=== PATIENT | female | born 1950 ===

== ENCOUNTER 2019-12-17 04:49 | Emergency (ER) | payer MEDICARE, BC, SELFPAY ==
[2019-12-17 04:52] VITALS: BP 116/73; PULSE 68; RESP 18; TEMP 36.7; O2SAT 95; BMI 37.8
--- NOTE | 2019-12-17 05:01 | CTR_ITS ---
PROCEDURE INFORMATION: Exam: CT Head Without Contrast Exam date and time: 12/17/2019 5:04 AM Age: 69 years old Clinical indication: Injury or trauma; Fall; Initial encounter; Blunt trauma (contusions or hematomas); Without loss of consciousness; Additional info: Trauma/fall TECHNIQUE: Imaging protocol: Computed tomography of the head without contrast. Radiation optimization: All CT scans at this facility use at least one of these dose optimization techniques: automated exposure control; mA and/or kV adjustment per patient size (includes targeted exams where dose is matched to clinical indication); or iterative reconstruction. COMPARISON: No relevant prior studies available. RADIATION DOSE METRICS: Total DLP (mGy-cm): 891.35 FINDINGS: Brain: No acute intracranial hemorrhage or mass effect. There is very mild decreased attenuation in the periventricular white matter, likely from microvascular disease. No definite acute infarct by CT. Ventricles: Ventricle size is normal for age. Bones/joints: No definite acute skull fracture. Sinuses: Included paranasal sinuses are essentially clear. Mastoid air cells: No significant acute finding. Vasculature: Vascular calcifications in the internal carotid and vertebral basilar systems. CT/CT head wo con* [id number] IMPRESSION: 1. No acute intracranial hemorrhage or mass effect. 2. Other findings discussed above. 3. Please see subsequent CT Facial Bone report for evaluation of the facial bones. Radiation Dose CTDIVOL = (mGy): DLP = 891.35 (mGy-cm)
--- NOTE | 2019-12-17 05:34 | XRR_ITS ---
PROCEDURE INFORMATION: Exam: XR Left Knee Exam date and time: 12/17/2019 6:21 AM Age: 69 years old Clinical indication: Injury or trauma; Initial encounter; Blunt trauma; Injury date: 12/17/19; Injury details: Fall; C/O left knee pain and left hip TECHNIQUE: Imaging protocol: XR Left knee. Views: 3 views. COMPARISON: No relevant prior studies available. FINDINGS: Bones/joints: Degenerative change and chondrocalcinosis. No acute bony injury or malalignment. Soft tissues: No radiopaque foreign body. XR/XR knee LT 3V* [id number] IMPRESSION: No acute bony injury or malalignment.
--- NOTE | 2019-12-17 05:34 | CTR_ITS ---
PROCEDURE INFORMATION: Exam: CT Maxillofacial Without Contrast Exam date and time: 12/17/2019 5:59 AM Age: 69 years old Clinical indication: Injury or trauma; Fall; Work related; Initial encounter; Blunt trauma (contusions or hematomas); Cheek bone; Right TECHNIQUE: Imaging protocol: Computed tomography images of the face without contrast. Radiation optimization: All CT scans at this facility use at least one of these dose optimization techniques: automated exposure control; mA and/or kV adjustment per patient size (includes targeted exams where dose is matched to clinical indication); or iterative reconstruction. COMPARISON: No relevant prior studies available. RADIATION DOSE METRICS: Total DLP (mGy-cm): 836.11 FINDINGS: Orbits: Orbital contents appear intact/unremarkable. Bones/joints: No definite evidence of acute facial bone fracture. Sinuses: Included paranasal sinuses appear essentially clear. Soft tissues: Right mid and lower facial soft tissue swelling. CT/CT facial bones wo con* [id number] IMPRESSION: 1. No definite acute facial bone/orbital fracture by CT. 2. Other findings discussed above. Radiation Dose CTDIVOL = (mGy): DLP = 836.11 (mGy-cm)
--- NOTE | 2019-12-17 05:34 | XRR_ITS ---
PROCEDURE INFORMATION: Exam: XR Left Hip with Pelvis when Performed Exam date and time: 12/17/2019 6:24 AM Age: 69 years old Clinical indication: Injury or trauma; Initial encounter; Blunt trauma (contusions or hematomas); Injury date: ; Injury details: Pain and swelling left hip after fall; Prior surgery; Surgery date: 6+ months; Surgery type: Lt hip replacement TECHNIQUE: Imaging protocol: XR Left hip with pelvis when performed. Views: 2 or 3 views. COMPARISON: CR Hip 2-3v LEFT wwo Pelv* [id number] 10/16/2018 3:01 PM FINDINGS: Bones/joints: No acute bony injury or malalignment in the visualized left hip. If an occult fracture is of clinical concern, CT correlation can be performed. Left hip hemiarthroplasty. Soft tissues: Skin folds. XR/XR hip LT 2-3V wo/w pel* [id number] IMPRESSION: No acute bony injury or malalignment in the visualized left hip.
[2019-12-17 06:18] VITALS: BP 152/99; PULSE 89; RESP 16; O2SAT 93
--- NOTE | 2019-12-17 07:26 | CT_ITS ---
WS: [id number] CT LEFT HIP HISTORY: hematoma Technique: All CT scans at [facility] use at least one of these dose optimization techniq ues: automated exposure control; mA and/or kV adjustment per patient size (includes targeted exams wh ere dose is matched to clinical indication); or iterative reconstruction. DLP: 2703.07 mGy.cm COMPARISON: 12/17/2019 radiographs Patient is status post LEFT hip arthroplasty. No acute fracture is identified. Prostheses remain in g ood position. There is a very large subcutaneous hematoma lateral to the RIGHT hip measuring 14 cm in length by 6.1 cm x 13.5 cm. There is a large amount of subcutaneous soft tissue stranding. The central portion of this hematoma is slightly liquefied. CT/CT hip LT wo con* [id number] IMPRESSION: 1. No acute LEFT hip fracture identified. 2. Status post LEFT hip arthroplasty. 3. Large subcutaneous hematoma has partially liquefied. Hematoma measures 14.0 x 6.1 x 13.5 cm. The central liquefaction may represent acute progressive blee ding versus liquefaction from remote injury.
[2019-12-17 07:46] LABS: Basophils # 0.1 10^3/uL (0.0-0.1); Basophils % 0.5 %; Eosinophils % 0.3 %; Hematocrit 41.1 % (37.0-47.0); Hemoglobin 13.2 g/dL (11.5-15.3); Lymphocytes % 15.1 %; Mean Corpuscular HGB Conc 32.1 g/dL (30.0-36.0); Mean Corpuscular Hemoglobin 31.7 pg (28.0-34.0); Mean Corpuscular Volume 98.8 fL (81-99); Mean Platelet Volume 10.4 fL (7.4-10.4); Monocytes # 0.7 10^3/uL (0.2-0.9); Monocytes % 5.3 %; Neutrophils # 10.16 10^3/uL (1.8-7.7); Neutrophils % 78.6 %; Nucleated Red Blood Cells % 0 %; Platelet Count 235 10^3/cmm (130-400); Red Blood Count 4.16 10^6/uL (4.1-5.3); Red Cell Distribution Width 12.3 % (12.1-15.1); White Blood Count 12.9 10^3/uL (4.0-10.0)
[2019-12-17 07:58] LABS: Partial Thromboplastin Time 46.2 SECONDS (23.9-36.7)
[2019-12-17 08:03] LABS: Alanine Aminotransferase 13 U/L (0-33); Albumin Level 4.1 g/dL (3.5-5.2); Alkaline Phosphatase 64 IU/L (35-105); Anion Gap 14.3 (5-19); Aspartate Amino Transferase 28 U/L (0-32); Blood Urea Nitrogen 16 mg/dL (8-23); Calcium 9.2 mg/dL (8.5-10.5); Carbon Dioxide 29 mmol/L (22-29); Chloride 99 mmol/L (98-107); Globulin 3.4 g/dL (1.3-4.6); Glucose 131 mg/dL (65-115); Osmolality Calculated 284 mOsm/kg (285-295); Potassium 4.3 mmol/L (3.5-5.1); Sodium 138 mmol/L (136-145); Total Bilirubin 0.4 mg/dL (0.15-1.2); Total Protein 7.5 g/dL (6.6-8.7)
[2019-12-17 08:25] VITALS: BP 163/124; PULSE 74; RESP 20; O2SAT 94
--- NOTE | 2019-12-17 08:41 | ED_ITS ---
HPI - Extremity Problem General: Chief complaint: Extremity Injury, Lower Stated complaint: FALL Time Seen by Provider: 12/17/19 05:32 History of Present Illness: HPI Narrative: Patient was walking outside to get her cat and caught her slipper on the edge of a wooden pallet. Patient fell and struck the left side of her face on a pole. She states the pole caused her body to twist and she landed on her left leg. Patient has an extremely large hematoma over her left hip. MD Complaint: extremity pain and extremity swelling Onset (ago): minute(s) Pain Consistency: constant Location: left and lower extremity (hip) Review of Systems General: Reports: 10 or more systems reviewed and unremarkable except in HPI and below PFSH ED PFSH: Medical History Atrial fibrillation Physical Exam Const: COMMON NORMALS: no acute distress, healthy appearing and well nourished GENERAL APPEARANCE: cooperative and well developed HENMT: COMMON NORMALS: hearing grossly normal bilaterally HEAD & SCALP: normal to inspection Eye: GENERAL EYE: appearance normal, both eyes and all related structures Neck/C-Spine: COMMON NORMALS: full ROM, no lymphadenopathy and no meningeal signs GENERAL: Yes normal visual inspection CERVICAL SPINE: Yes cervical ROM normal and Yes normal cervical lordosis Chest: COMMONS NORMALS: normal inspection of the chest and normal palpation of entire chest wall Resp: COMMON NORMALS: normal respiratory effort, clear to auscultation bilaterally and percussion normal AUSCULTATION: clear to auscultation bilaterally PERCUSSION: percussion normal Cardio: COMMON NORMALS: regular rate, regular rhythm, S1 normal heart sound present and S2 normal heart sound present JUGULAR VENOUS DISTENTION: no JVD PALPATION: normal PMI RATE: regular rate RHYTHM: regular rhythm HEART SOUNDS: S1 normal heart sound present and S2 normal heart sound present GI: COMMON NORMALS: Soft to palpation and No hepatosplenomegaly present INSPECTION: Yes normal to inspection PALPATION: Yes Soft to palpation and Yes No hepatosplenomegaly present PERCUSSION: normal to percussion : COMMON NORMALS: Yes no CVA tenderness BLADDER/KIDNEY EXAM: Yes no CVA tenderness Back/Pelvis: COMMON NORMALS: no CVA tenderness, thoracic and lumbar spine normal to inspection and thoraco-lumbar ROM normal Extremity: COMMON NORMALS: full ROM and capillary refill normal NARRATIVE EXTREMITY EXAM: Patient has a hematoma over her left hip that is approximately 30 cm in diameter Neuro: MENINGEAL SIGNS: Yes no meningeal signs Skin: COMMON NORMALS: no rashes or lesions noted, no wounds and turgor normal GENERAL SKIN EXAM: no rashes or lesions noted, elasticity normal and turgor normal LESIONS: no lesions RASHES: no rashes TRAUMA: no lacerations or abrasions HAIR: normal NAILS: normal Course ED course: CAT scan patient's head and face are normal. Plain x-ray of the left hip shows no evidence of acute injury. CT of the hip reveals no fracture but a very large hematoma. Patient's INR is only 2.3 so the patient was given vitamin K 5 mg by mouth. An Maikol wrap was wrapped around the patient's upper leg and hip for compression. Patient is instructed to come back to the ER in 8 hours for reevaluation. Vital Signs: Vital signs: Vital Signs Temperature 98.1 F 12/17/19 04:52 Pulse Rate 74 12/17/19 08:25 Respiratory Rate 20 H 12/17/19 08:25 Blood Pressure 163/124 12/17/19 08:25 Pulse Oximetry 94 12/17/19 08:25 MDM - Extremity (Nontraumatic) Lab Data: Labs: Lab Results 12/17/19 12/17/19 12/17/19 Range/Units 07:39 07:39 07:39 WBC 12.9 H (4.0-10.0) 10^3/ uL RBC 4.16 (4.1-5.3) 10^6/u L Hgb 13.2 (11.5-15.3) g/dL Hct 41.1 (37.0-47.0) % MCV 98.8 (81-99) fL MCH 31.7 (28.0-34.0) pg MCHC 32.1 (30.0-36.0) g/dL RDW 12.3 (12.1-15.1) % Plt Count 235 (130-400) 10^3/c mm MPV 10.4 (7.4-10.4) fL Neut % (Auto) 78.6 % Lymph % (Auto) 15.1 % [place] % (Auto) 5.3 % Eos % (Auto) 0.3 % Baso % (Auto) 0.5 % Neut # (Auto) 10.16 H (1.8-7.7) 10^3/u L Lymph # (Auto) 2.0 (0.8-4.8) 10^3/u L [place]enton # (Auto) 0.7 (0.2-0.9) 10^3/u L Eos # (Auto) 0.0 (0.0-0.8) 10^3/u L Baso # (Auto) 0.1 (0.0-0.1) 10^3/u L Nucleated RBC % (a uto) 0 % Nucleated RBCs # 0.0 /100WBC PT 26.10 H (10.5-13.3) SECO NDS INR 2.30 H (0.8-1.2) APTT 46.2 H (23.9-36.7) SECO NDS Sodium 138 (136-145) mmol/L Potassium 4.3 (3.5-5.1) mmol/L Chloride 99 (98-107) mmol/L Carbon Dioxide 29 (22-29) mmol/L Anion Gap 14.3 (5-19) BUN 16 (8-23) mg/dL Creatinine 0.6 (0.5-0.9) mg/dL Glucose 131 H (65-115) mg/dL Calculated Osmolal ity 284 L (285-295) mOsm/k g Calcium 9.2 (8.5-10.5) mg/dL Total Bilirubin 0.4 (0.15-1.2) mg/dL AST 28 (0-32) U/L ALT 13 (0-33) U/L Alkaline Phosphata se 64 (35-105) IU/L Total Protein 7.5 (6.6-8.7) g/dL Albumin 4.1 (3.5-5.2) g/dL Globulin 3.4 (1.3-4.6) g/dL Discharge Plan Discharge Patient Disposition: Home, Self-Care Clinical Impression: Hematoma and contusion, Anticoagulated on Coumadin Fall Qualifiers: Encounter type: initial encounter Qualified Code(s): W19.XXXA - Unspecified fall, initial encounter Condition: Stable Prescriptions: No Action warfarin [Coumadin] 6 mg tablet 6 mg PO DAILY Qty: 90 RF: 3 warfarin [Coumadin] 1 mg tablet 1 mg PO DAILY Qty: 30 RF: 11 warfarin 5 mg tablet 5 mg PO DAILY Qty: 30 RF: 5 Discharge Orders: Discharge Order (Routine); Ordered 12/17/19 Ordered By: Yonis Mayes Referrals: Carmina Soto MD [Primary Care Provider] - Coding Level of Care Code ED [place] Operator for g 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
[2019-12-17] MEDS: phytonadione (ADULT) 10 mg/mL Ampule 1 mL 5 MG PO (08:58)
--- NOTE | 2019-12-17 09:13 | PC.NURSE ---
meghana wrap was wrapped around hematoma and measured for any increased in size was told that any increase in size patient should come back in at 1700
[2019-12-17 09:17] VITALS: BP 135/93; PULSE 100; RESP 20; O2SAT 94
== END 2019-12-17 09:19 | disposition home or self-care (01) ==
PROVIDERS: Emergency Provider Family Medicine; PCP Internal Medicine
DX: S70.02XA Contusion of left hip, initial encounter (principal); Z79.01 Long term (current) use of anticoagulants; I48.91 Unspecified atrial fibrillation; W01.198A Fall on same level from slipping, tripping and stumbling with subsequent striking against other object, initial encounter
CPT/HCPCS: 12345; 36415; 70450; 70486; 73502; 73562; 73700; 80053; 85025; 85610; 85730; 99281; 99283; J3430

== ENCOUNTER 2020-01-18 10:13 | Outpatient (CLI) | payer MEDICARE, BC, SELFPAY ==
--- NOTE | 2020-01-18 11:15 | CT_ITS ---
WS: [id number] CT LEFT HIP, NONCONTRAST HISTORY: left hip hematoma, post fall, on anticoagulation Technique: All CT scans at [facility] use at least one of these dose optimization techniq ues: automated exposure control; mA and/or kV adjustment per patient size (includes targeted exams wh ere dose is matched to clinical indication); or iterative reconstruction. DLP: 804.16 mGycm COMPARISON: 12/17/2019 Continued soft tissue hematoma centered lateral to the LEFT hip. There is a subcutaneous soft tissue mass extending over length of 13.8 cm and transversely by 7.8 cm. Very slight decrease in size of thi s hematoma since 12/17/2019. There is less adjacent subcutaneous edema. Significant artifact from the patient's LEFT hip arthroplasty. No acute fractures are identified. CT/CT hip LT wo con* [id number] IMPRESSION: Persistent large subcutaneous hematoma centered lateral to the LEFT hip. Minima l decrease in size since 12/17/2019.
== END 2020-01-18 10:14 | disposition home or self-care (01) ==
LOC: RADWPI 10:18
PROVIDERS: PCP Internal Medicine; Visit Provider Nurse Practitioner Family
DX: S70.02XA Contusion of left hip, initial encounter (principal); W19.XXXA Unspecified fall, initial encounter
CPT/HCPCS: 73700

== ENCOUNTER 2020-06-07 18:28 | Inpatient (IN) | payer MEDICARE, BC, SELFPAY ==
[2020-06-07 18:34] VITALS: BP 152/75; PULSE 66; RESP 20; TEMP 36.7; O2SAT 94; BMI 37.8
--- NOTE | 2020-06-07 18:48 | XRR_ITS ---
PROCEDURE INFORMATION: Exam: XR Chest, 1 View Exam date and time: 06/07/2020 7:51 PM Age: 70 years old Clinical indication: Shortness of breath; Additional info: SOB TECHNIQUE: Imaging protocol: XR of the chest Views: 1 view. COMPARISON: No relevant prior studies available. FINDINGS: Lungs: There are reticulonodular interstitial infiltrates bilaterally. This could be due to interstitial fibrosis but an interstitial pneumonitis cannot be excluded without comparison old films. Pleural space: Unremarkable. No pleural effusion. No pneumothorax. Heart/Mediastinum: The cardiac silhouette is enlarged. Bones/joints: Unremarkable. XR/XR chest 1V portable [id number] IMPRESSION: 1. Cardiomegaly. 2. Reticulonodular interstitial pulmonary infiltrates which may be chronic fibrosis but without old films an acute interstitial pneumonitis cannot be excluded.
--- NOTE | 2020-06-07 18:53 | PC.NURSE ---
pt placed on 3l nc
--- NOTE | 2020-06-07 18:59 | PC.NURSE ---
pt has no hx of copd, does not wear home o2, ra sats anywhere from 87-94
--- NOTE | 2020-06-07 20:48 | ECG_ITS ---
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 Measurements Intervals [place] Rate: 47 P: WI: QRS: -11 QRSD: 123 T: -36 QT: 463 QTc: 411 Interpretive Statements ATRIAL FIBRILLATION WITH SLOW VENTRICULAR RESPONSE ANTEROSEPTAL MYOCARDIAL INFARCTION , OF INDETERMINATE AGE [40+ ms Q WAVE IN V1-V4] No previous ECG available for comparison Electronically Signed On 06-08-2020 0:12:07 FARM MANAGEMENT ADVISER by Chelo Correa M.D. [id number]
[2020-06-07 21:18] VITALS: BP 139/68; PULSE 50; RESP 16; O2SAT 97
[2020-06-07 21:48] LABS: Basophils # 0.1 10^3/uL (0.0-0.1); Basophils % 0.8 %; Eosinophils # 0.1 10^3/uL (0.0-0.8); Eosinophils % 2.1 %; Hematocrit 45.8 % (37.0-47.0); Hemoglobin 14.2 g/dL (11.5-15.3); Lymphocytes # 1.6 10^3/uL (0.8-4.8); Lymphocytes % 26.2 %; Mean Corpuscular Volume 103.2 fL (81-99); Mean Platelet Volume 10.4 fL (7.4-10.4); Monocytes # 0.6 10^3/uL (0.2-0.9); Monocytes % 9.2 %; Neutrophils # 3.73 10^3/uL (1.8-7.7); Neutrophils % 61.4 %; Nucleated Red Blood Cells % 0 %; Platelet Count 172 10^3/cmm (130-400); Red Blood Count 4.44 10^6/uL (4.1-5.3); Red Cell Distribution Width 14.5 % (12.1-15.1); White Blood Count 6.1 10^3/uL (4.0-10.0)
--- NOTE | 2020-06-07 21:49 | W.ED.SOB ---
HPI - SOB/Dyspnea General: Chief Complaint: Shortness of Breath/Dyspnea Stated Complaint: WEAKNESS, SOB Time Seen by Provider: 06/07/20 21:06 History of Present Illness: HPI Narrative: The patient is a 70-year-old female who was treated for pneumonia 2 weeks ago. She comes to the ER stating that it feels like an elephant is sitting on her chest and her belly feels very swollen. She says it hurts with deep breaths and coughing and she is short of breath especially when she lays down. She says they gave her antibiotics for the pneumonia couple weeks ago but she feels no better and the pressure is still there. She says she may have had a myocardial infarction somewhere in her 30s but nothing since. Story of A. fib, CHF, DVTs and admits some swelling to her lower extremities and in the past few days her belly has began to swell. MD elicited complaint: shortness of breath, cough and chest pain (Chest pressure) Pertinent past history: congestive heart failure Context: recent illness Severity: moderate Exacerbating factors: coughing and inspiration Relieving factors: nothing Known history of: congestive heart failure Associated symptoms: Reports abdominal pain (With coughing) and chest pain (Chest pressure); Deny dizziness, extremity pain or polyuria Treatment prior to arrival: none Review of Systems General: Reports: 10 or more systems reviewed and unremarkable except in HPI and below Const: Denies: fatigue Eyes: Denies: change in vision, blurry vision or eye redness ENMT: Denies: throat pain, swelling of lips/tongue, ear or mastoid pain or nasal congestion Card: Reports: chest pain (Chest pressure) Resp: Denies: dyspnea, productive cough or non-productive cough GI: Reports: abdominal pain (With coughing) : Denies: flank pain, difficulty voiding, urinary frequency or urinary urgency Musc: Denies: neck pain, back pain, extremity pain, joint pain, joint redness, limited range of motion or muscle weakness Skin/Breast: Denies: rash, pruritus, erythema, skin pain or skin tenderness Neuro: Denies: headache(s), numbness in extremities, weakness in extremities, sensory changes, difficulty walking, dizziness, confusion or Slurred speech present Psych: Denies: anxiety or depression Endo: Denies: polyuria All/Imm: Denies: urticaria, throat swelling or tongue swelling PFSH ED PFSH: Medical History (Updated 06/08/20 @ 00:09 by Dionicio Chand MD) Atrial fibrillation CHF (congestive heart failure) Hx of deep venous thrombosis Surgical History Hx of hysterectomy Hx of tonsillectomy Family History Father CAD (coronary artery disease) Mother Cancer Grandmother Cancer Denies family history of Diabetes Clotting disorder Dementia Hyperlipidemia Psychiatric illness Chronic kidney disease (CKD) Suicide Anesthesia complication Bleeding disorder Family history of premature coronary artery disease Lung disease Hypertension Stroke Social History Smoking and tobacco status: former smoker Alcohol intake: never Physical Exam Const: COMMON NORMALS: no acute distress, average body habitus, patient oriented x3, no limitations, healthy appearing, alert and well nourished GENERAL APPEARANCE: cooperative, comfortable, well kempt and well developed ORIENTATION/CONSCIOUSNESS: Yes awake, Yes oriented to person, Yes oriented to place and Yes oriented to time HENMT: COMMON NORMALS: normocephalic, external ears normal and Normal external nose present HEAD & SCALP: normal to inspection and normocephalic NOSE: Normal external nose present EXTERNAL EAR: Yes external ears normal MOUTH: Normal oral and palatal mucosa present THROAT: posterior oropharynx normal Eye: COMMON NORMALS: Equal, round and reactive pupils present and EOMs intact bilaterally GENERAL EYE: appearance normal, both eyes and all related structures PUPIL: Yes Equal, round and reactive pupils present Neck/C-Spine: COMMON NORMALS: full ROM, no lymphadenopathy, no meningeal signs and no JVD GENERAL: Yes normal visual inspection Lymph: LYMPHATIC: no lymphadenopathy noted Chest: COMMONS NORMALS: normal inspection of the chest OTHER: Anterior tenderness to the chest wall reproducing her chief complaint of chest pressure Resp: COMMON NORMALS: normal respiratory effort, No retractions, No use of accessory muscles, clear to auscultation bilaterally and percussion normal EFFORT & INSPECTION: Yes able to speak in complete sentences AUSCULTATION: clear to auscultation bilaterally PERCUSSION: percussion normal Cardio: COMMON NORMALS: no JVD, regular rate, regular rhythm, S1 normal heart sound present, S2 normal heart sound present and Peripheral pulses 2+ throughout RATE: regular rate RHYTHM: regular rhythm HEART SOUNDS: S1 normal heart sound present and S2 normal heart sound present PERIPHERAL PULSES: Peripheral pulses 2+ throughout GI: COMMON NORMALS: Normal to inspection, nondistended, normoactive bowel sounds present, Soft to palpation, non-tender and no masses INSPECTION: Yes normal to inspection PALPATION: Yes Soft to palpation : COMMON NORMALS: Yes no CVA tenderness BLADDER/KIDNEY EXAM: Yes no CVA tenderness Back/Pelvis: COMMON NORMALS: no CVA tenderness, thoracic and lumbar spine normal to inspection, no thoracic nor lumbar tenderness and thoraco-lumbar ROM normal Extremity: COMMON NORMALS: normal to inspection, full ROM, capillary refill normal, no joint enlargement and no pedal edema GENERAL: Yes normal exam except as noted OTHER: 1-2+ edema to the lower extremities to her knees. Neuro: COMMON NORMALS: patient oriented x3, CN's II-XII intact bilaterally, moves all extremities, no focal motor deficits, no sensory deficits noted and gait normal SENSORIUM/ORIENTATION: Yes alert, Yes oriented to person, Yes oriented to place and Yes oriented to time MENINGEAL SIGNS: Yes no meningeal signs Psych: COMMON NORMALS: mental status grossly normal, Normal thought process present, cooperative, normal affect and speech normal APPEARANCE: Yes well kempt ATTITUDE: Yes calm SPEECH: Yes normal speech THOUGHT PROCESS: Normal thought process present Skin: COMMON NORMALS: no rashes or lesions noted GENERAL SKIN EXAM: no rashes or lesions noted Course Vital Signs: Vital signs: Vital Signs Temperature 98.0 F 06/07/20 18:34 Pulse Rate 50 L 06/07/20 21:18 Respiratory Rate 17 06/07/20 23:30 Blood Pressure 139/68 06/07/20 21:18 Pulse Oximetry 97 06/07/20 21:18 MDM - SOB/Dyspnea MDM Narrative: Medical decision making narrative: The patient came in complaining of chest pressure and swelling in her belly. She has been treated recently for pneumonia with antibiotics 2 weeks ago. Chest x-ray is clear. And her chest is tender. Unlikely true angina. First troponin is negative and her EKG shows sinus bradycardia with atrial fibrillation. She chronically has this and takes warfarin though is slightly subtherapeutic. Her proBNP is 1713. She has no baseline here. This does easily explain her swelling and abdominal distention. She says she does not take her Lasix at home because she is in a power chair and refuses to urinate on her clothes or floor all day every day. I ordered Lasix for the ER and she refused that as well. She also refused her aspirin for the chest pain protocol. I described the need for both of these medications and she again refused. She says she will take the Lasix only if she is admitted as an inpatient. I discussed with the hospitalist who says she is in observation patient and I agree. I gave her the choice of being kept as an observation or being discharged AGAINST MEDICAL ADVICE. She chose observation and will speak with social work tomorrow about insurance. Dr. Flores accepts obs. Lab Data: Labs: Lab Results 06/07/20 06/07/20 06/07/20 Range/Units 21:26 21:26 21:26 WBC 6.1 (4.0-10.0) 10^3/ uL RBC 4.44 (4.1-5.3) 10^6/u L Hgb 14.2 (11.5-15.3) g/dL Hct 45.8 (37.0-47.0) % MCV 103.2 H (81-99) fL MCH 32.0 (28.0-34.0) pg MCHC 31.0 (30.0-36.0) g/dL RDW 14.5 (12.1-15.1) % Plt Count 172 (130-400) 10^3/c mm MPV 10.4 (7.4-10.4) fL Neut % (Auto) 61.4 % Lymph % (Auto) 26.2 % [place] % (Auto) 9.2 % Eos % (Auto) 2.1 % Baso % (Auto) 0.8 % Neut # (Auto) 3.73 (1.8-7.7) 10^3/u L Lymph # (Auto) 1.6 (0.8-4.8) 10^3/u L [place] # (Auto) 0.6 (0.2-0.9) 10^3/u L Eos # (Auto) 0.1 (0.0-0.8) 10^3/u L Baso # (Auto) 0.1 (0.0-0.1) 10^3/u L Nucleated RBC % (a uto) 0 % Nucleated RBCs # 0.0 /100WBC PT (12.1-14.9) SECO NDS INR (0.8-1.2) D-Dimer (0-0.59) ug/mIFE U Sodium 142 (136-145) mmol/L Potassium 4.0 (3.5-5.1) mmol/L Chloride 97 L (98-107) mmol/L Carbon Dioxide 39 H (22-29) mmol/L Anion Gap 10.0 (5-19) BUN 20 (8-23) mg/dL Creatinine 0.7 (0.5-0.9) mg/dL GFR Calculation Not Reportable Glucose 97 (65-115) mg/dL Calculated Osmolal ity 297 H (285-295) mOsm/k g Calcium 9.2 (8.5-10.5) mg/dL Total Bilirubin 0.7 (0.15-1.2) mg/dL AST 19 (0-32) U/L ALT 9 (0-33) U/L Alkaline Phosphata se 60 (35-105) IU/L Troponin T Baselin e 17 H (0-10) ng/L NT-Pro-B Natriuret Pep 1713 H (0-125) pg/mL Total Protein 6.5 L (6.6-8.7) g/dL Albumin 4.0 (3.5-5.2) g/dL Globulin 2.5 (1.3-4.6) g/dL 06/07/20 06/07/20 Range/Units 21:26 21:26 WBC (4.0-10.0) 10^3/ uL RBC (4.1-5.3) 10^6/u L Hgb (11.5-15.3) g/dL Hct (37.0-47.0) % MCV (81-99) fL MCH (28.0-34.0) pg MCHC (30.0-36.0) g/dL RDW (12.1-15.1) % Plt Count (130-400) 10^3/c mm MPV (7.4-10.4) fL Neut % (Auto) % Lymph % (Auto) % [place] % (Auto) % Eos % (Auto) % Baso % (Auto) % Neut # (Auto) (1.8-7.7) 10^3/u L Lymph # (Auto) (0.8-4.8) 10^3/u L [place] # (Auto) (0.2-0.9) 10^3/u L Eos # (Auto) (0.0-0.8) 10^3/u L Baso # (Auto) (0.0-0.1) 10^3/u L Nucleated RBC % (a uto) % Nucleated RBCs # /100WBC PT 20.80 H (12.1-14.9) SECO NDS INR 1.72 H (0.8-1.2) D-Dimer 1.30 H (0-0.59) ug/mIFE U Sodium (136-145) mmol/L Potassium (3.5-5.1) mmol/L Chloride (98-107) mmol/L Carbon Dioxide (22-29) mmol/L Anion Gap (5-19) BUN (8-23) mg/dL Creatinine (0.5-0.9) mg/dL GFR Calculation Glucose (65-115) mg/dL Calculated Osmolal ity (285-295) mOsm/k g Calcium (8.5-10.5) mg/dL Total Bilirubin (0.15-1.2) mg/dL AST (0-32) U/L ALT (0-33) U/L Alkaline Phosphata se (35-105) IU/L Troponin T Baselin e (0-10) ng/L NT-Pro-B Natriuret Pep (0-125) pg/mL Total Protein (6.6-8.7) g/dL Albumin (3.5-5.2) g/dL Globulin (1.3-4.6) g/dL Discharge Plan Discharge Patient Disposition: Placed in Observation Clinical Impression: Congestive heart failure Qualifiers: Heart failure type: unspecified Heart failure chronicity: chronic Qualified Code(s): I50.9 - Heart failure, unspecified Chest pain Qualifiers: Chest pain type: unspecified Qualified Code(s): R07.9 - Chest pain, unspecified Coding Level of Care Code ED [employer] 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
[2020-06-07 22:02] LABS: INR 1.72 (0.8-1.2)
[2020-06-07 22:14] LABS: Troponin(5th) Baseline 17 ng/L (0-10)
[2020-06-07 22:17] LABS: Alanine Aminotransferase 9 U/L (0-33); Alkaline Phosphatase 60 IU/L (35-105); Aspartate Amino Transferase 19 U/L (0-32); Blood Urea Nitrogen 20 mg/dL (8-23); Calcium 9.2 mg/dL (8.5-10.5); Carbon Dioxide 39 mmol/L (22-29); Chloride 97 mmol/L (98-107); Creatinine Clr Calc Pharmacy 72.9886; Globulin 2.5 g/dL (1.3-4.6); Glucose 97 mg/dL (65-115); NT Pro B Type Natriuretic Pept 1713 pg/mL (0-125); Osmolality Calculated 297 mOsm/kg (285-295); Sodium 142 mmol/L (136-145); Total Bilirubin 0.7 mg/dL (0.15-1.2); Total Protein 6.5 g/dL (6.6-8.7)
[2020-06-07] MEDS: nitroglycerin 0.4 mg sublingual Tablet SUBLINGUAL (22:52)
[2020-06-07 23:30] VITALS: RESP 17
--- NOTE | 2020-06-07 23:31 | PC.NURSE ---
second troponin drawn and taken to lab by this nurse
[2020-06-07 23:57] LABS: Troponin 5 2HR 16.68 ng/L (0-10)
[2020-06-08] VITALS (11 sets, daily range): BP systolic 103–138; BP diastolic 69–72; PULSE 48–83; RESP 16–22; TEMP 36.6; O2SAT 92–97
[2020-06-08 00:04] LABS: Troponin 5 2HR Delta -0.32 ABS# (0-10)
--- NOTE | 2020-06-08 00:24 | PM.HP ---
Providers/Chief Complaint Primary Care Provider: Carmina Soto MD Chief Complaint: WEAKNESS, SOB History of Present Illness Prachi Gooden is a 70 year old female she of preserved ejection fraction heart failure EF 56% presented today with chief complaint of thoughts PND and shortness of breath. patient is stating that at home she uses electric wheelchair and is very hard for her to go to the bathroom when she is using Lasix so she decided to not take Lasix at all, she is also eating frozen food, not able to cook for herself, relies on neighbors food sometimes, for her snacks she is eating crackers with peanut butter does not watch her sodium or fluid intake. She has quit smoking does not drink alcohol. Her morbid obesity and other chronic conditions are making her ambulation very difficult for her which is affecting her quality of life. She is not endorsing fever, chest pain, diarrhea nausea or vomiting however endorsing abdominal bloating, gaining weight and feeling discomfort around her abdominal area. Diagnosis in the ER revealed CHF exacerbation with clinical signs of fluid overload, patient refused IV Lasix in the ER stating she does not want to urinate in her friend's car, however agreed to stay overnight for initiation of Bumex, monitor urine output and use bedside commode. Review of Systems Const: Denies: fever(s) Eyes: Denies: change in vision ENMT: Denies: throat pain Card: Reports: edema, swelling of feet/ankles, dyspnea on exertion and orthopnea; Denies: chest pain Resp: Reports: dyspnea GI: Reports: early satiety, bloating and GI cramping; Denies: abdominal pain : Denies: flank pain Musc: Denies: neck pain Skin/Breast: Denies: rash Neuro: Denies: headache(s) Psych: Reports: anxiety Endo: Denies: polyuria Herb/Lymph: Denies: easy bruising All/Imm: Denies: urticaria Medications/Allergies Home Medications Medication Instructions Recorded Confirmed Last Taken Type warfarin 6 mg tablet 6 mg PO DAILY #90 tab 11/16/19 05/31/20 Unknown Rx warfarin 1 mg tablet 1 mg PO DAILY #30 tab 11/18/19 05/31/20 Unknown Rx warfarin 5 mg tablet 5 mg PO DAILY #30 tab 12/08/19 05/31/20 Unknown Rx acyclovir 400 mg tablet 400 mg PO BID 12/22/19 01/21/20 Unknown History albuterol sulfate 0.63 mg/3 mL 0.63 mg INHALATION Q6H 12/22/19 01/21/20 Unknown History solution for nebulization albuterol sulfate 90 mcg/actuation 1 inh INHALATION QID 12/22/19 01/21/20 Unknown History aerosol inhaler atenolol 25 mg tablet 25 mg PO DAILY 12/22/19 01/21/20 Unknown History colesevelam 625 mg tablet 1,250 mg PO BID 12/22/19 01/21/20 Unknown History diazepam 10 mg tablet 10 mg PO TID PRN 12/22/19 01/21/20 Unknown History fentanyl 75 mcg/hr transdermal 1 patch TRANSDERMA Q72H 12/22/19 01/21/20 Unknown History patch furosemide 40 mg tablet 40 mg PO DAILY 12/22/19 01/21/20 Unknown History gabapentin 300 mg capsule 300 mg PO TID 12/22/19 01/21/20 Unknown History levothyroxine 100 mcg tablet 100 mcg PO DAILY 12/22/19 01/21/20 Unknown History montelukast 10 mg tablet 10 mg PO DAILY 12/22/19 01/21/20 Unknown History nitroglycerin 0.4 mg sublingual 0.4 mg SUBLINGUAL Q5M PRN 12/22/19 01/21/20 Unknown History tablet potassium chloride 20 mEq 20 meq PO DAILY 12/22/19 01/21/20 Unknown History tablet,extended release digoxin 250 mcg (0.25 mg) tablet 250 mcg PO DAILY #90 tab 02/22/20 Unknown Rx nifedipine 90 mg tablet,extended 90 mg PO DAILY #30 tab 05/04/20 Unknown Rx release simvastatin 40 mg tablet See Rx Instructions .ROUTE 05/16/20 Unknown Rx .COMPLEX #90 tablet Allergies Allergy/AdvReac Type Severity Reaction Status Date / Time adhesive tape Allergy Unknown Unverified 06/16/19 14:09 duloxetine [From Cymbalta] Allergy Unknown Unverified 06/16/19 14:09 Iodinated Contrast Media Allergy Unknown Unverified 06/16/19 14:09 theophylline Allergy Unknown Unverified 06/16/19 14:09 [facility] [place] Wort Allergy Unknown Uncoded 06/16/19 14:09 PFSH Acute PFSH: Medical History Atrial fibrillation CHF (congestive heart failure) Chronic anticoagulation For A. fib and DVT COPD (chronic obstructive pulmonary disease) Hx of deep venous thrombosis Hypothyroid Sleep apnea Surgical History History of hip replacement Bilateral hip arthroplasty Hx of hysterectomy Hx of tonsillectomy S/P cholecystectomy Family History Father CAD (coronary artery disease) Mother Cancer Grandmother Cancer Denies family history of Diabetes Clotting disorder Dementia Hyperlipidemia Psychiatric illness Chronic kidney disease (CKD) Suicide Anesthesia complication Bleeding disorder Family history of premature coronary artery disease Lung disease Hypertension Stroke Social History Smoking and tobacco status: former smoker Alcohol intake: never Vitals/I&O/Wt Last Vital Signs Temp 98.0 F 06/07/20 18:34 Pulse 50 L 06/07/20 21:18 Resp 17 06/07/20 23:30 BP 139/68 06/07/20 21:18 Pulse Ox 97 06/07/20 21:18 Weight last 48 hrs Weight 99.79 kg Physical Exam Narrative: EXAM NARRATIVE: Very pleasant elderly female Awake alert oriented x3 GCS 15 EOMI, PERRLA Currently saturating well on room air No active chest pain or shortness of breath Clinical signs of fluid overload S1, S2 variable with active signs of heart failure 2+ pitting edema lower extremity Adequate bilateral air flow however crackles noted at the bases bilaterally Abdomen soft, distended, bloated bowel sound present nontender No skin rash gangrene or ulcer Appropriate mood and affect Morbid obesity All distal extremities are warm to touch no active joint swelling however endorsing joint pain with range of motion especially at hip joint, uses wheelchair Data : 06/07/20 21:26 06/07/20 21:26 A&P Assessment and plan (1) Acute exacerbation of CHF (congestive heart failure): Acute CHF exacerbation Patient does not use Lasix at all at home Dietary indiscretion, she is eating frozen food and eats a lot of crackers with peanut butter Endorsing orthopnea PND shortness of breath, no active chest pain, negative delta troponin, EKG is not showing any ischemic or infarctive changes, I would start her on Bumex 1 mg monitor her urine output Counseled patient regarding low-salt intake less than 1 g a day, compliance with Lasix in order to avoid CHF exacerbation and recurrent admissions She seems to understand and is receptive of information however her hip pain and use of electric wheelchair makes it very difficult to cook which would be a hindrance for her to eat healthy cook for herself, she mostly relies on her neighbors or frozen food Status: Acute Additional A&P Information A. fib without RVR: Subtherapeutic INR, I would continue Coumadin 6 mg check INR tomorrow, History of DVTs: Patient is not sure whether she was diagnosed with hematological disorder however compliant with her Coumadin, she is currently not tachycardic or hypoxic, Obstructive sleep apnea: Auto CPAP at Hypothyroidism: Continue levothyroxine home regimen 100 mcg COPD without acute exacerbation Full code Cardiac diet DVT prophylaxis not needed currently on Coumadin Attestations Medical Necessity Statement*: Anticipating discharge in less than 48 hours currently need initiation of Lasix regimen for CHF exacerbation, clinical signs of fluid overload Time Spent in Patient Care: (>than 50% of time spent in counselling and/or direct pt care on unit). 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
--- NOTE | 2020-06-08 00:48 | ECG_ITS ---
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 Measurements Intervals [place] Rate: 50 P: NC: QRS: -13 QRSD: 121 T: -15 QT: 474 QTc: 436 Interpretive Statements ATRIAL FIBRILLATION WITH SLOW VENTRICULAR RESPONSE WITH ABERRANT CONDUCTION OR VENTRICULAR PREMATURE COMPLEXES ANTEROSEPTAL MYOCARDIAL INFARCTION , PROBABLY RECENT Compared to ECG 06/07/2020 21:15:51 Aberrant conduction of supraventricular beat(s) now present Ventricular premature complex(es) now present Myocardial infarct finding still present Electronically Signed On 06-08-2020 21:25:05 RIPSAWYER by Arlene Aguayo M.D. [id number]
--- NOTE | 2020-06-08 06:01 | PC.NURSE ---
Called DR. Flores about missed 6 hour trop[address] on patient. Dr. Flores advised 6 hour troponin was not needed due to negative 2 hour delta.
--- NOTE | 2020-06-08 06:57 | CT_ITS ---
WS: [id number] CTA OF THE CHEST WITH PULMONARY EMBOLISM PROTOCOL TECHNIQUE: High-resolution contrast enhanced CTA of the chest with coronal and sagittal reformatted i mages with pulmonary embolism protocol. MIP images are also reviewed. CLINICAL INFORMATION: pe COMPARISON: None. DLP: 563.[address] scans at [facility] use at least one of these dose optimization techniques: automat ed exposure control; mA and/or kV adjustment per patient size (includes targeted exams where dose is matched to clinical indication); or iterative reconstruction. FINDINGS: Cardiomegaly. Proximal main pulmonary arteries are normal. Segmental and subsegmental pulmonary arter ies are patent. No evidence of pulmonary embolus. Normal caliber thoracic aorta. Coronary calcificati on. No mediastinal or hilar lymphadenopathy. Small thyroid nodules. Moderate chronic emphysematous change. No acute pulmonary infiltrates. No focal consolidation or pleu ral fluid. Hypertrophic changes thoracic spine. Advanced degenerative arthritis glenohumeral joints w ith subchondral cystic change. Chronic anterior wedging lower thoracic spine. CT/CT angio chest PE protcl [id number] IMPRESSION: 1. No evidence of pulmonary embolus. 2. Cardiomegaly. 3. Moderate chronic emphysematous changes. No acute pulmonary infiltrates. 4. Cholecystectomy clips.
[2020-06-08 07:04] LABS: Troponin 5 6HR 16.68 ng/L (0-10)
[2020-06-08 07:08] LABS: Troponin 5 6HR Delta -0.32 ng/L (0-12)
[2020-06-08] MEDS: diphenhydrAMINE 50 mg/mL SDV 1mL IVP (07:46)
[2020-06-08] MEDS: iodixanol 320 mg/mL 100mL Btl IV (08:15)
[2020-06-08] MEDS: levothyroxine 100 mcg Tablet PO (09:27)
[2020-06-08] MEDS: gabapentin 300 mg Capsule PO ×3 (09:28→21:47)
[2020-06-08] MEDS: atenolol 50 mg Tablet 25 MG PO (09:28)
[2020-06-08] MEDS: NIFEdipine ER (24 hr) 30 mg Tablet 90 MG PO (09:29)
[2020-06-08] MEDS: bumetanide 1 mg Tablet PO (09:33)
--- NOTE | 2020-06-08 10:43 | P.PN_ITS ---
Subjective Subjective: Interval history: No acute event overnight.Patient is resting comfortably. Vitals an labs have been reviewed. Medications: Reviewed: Yes Vitals/I&O/Wt Last Vital Signs Temp 98.0 F 06/07/20 18:34 Pulse 83 06/08/20 08:52 Resp 22 H 06/08/20 09:00 BP 103/69 06/08/20 08:52 Pulse Ox 95 06/08/20 09:00 Weight last 48 hrs Weight 99.79 kg Physical Exam Const: COMMON NORMALS: patient oriented x3 HENMT: COMMON NORMALS: normocephalic and atraumatic HEAD & SCALP: normoc ephalic and atraumatic Chest: CHEST: Yes Symmetrical chest wall rise Resp: COMMON NORMALS: normal respiratory effort EFFORT & INSPECTION: Yes symmetric chest movement OTHER: Minimal expiratory wheezing Present.No crackles and no ronchii. Cardio: COMMON NORMALS: regular rate, regular rhythm, S1 normal heart sound present, S2 normal heart sound present, No gallops present (Cardio), No murmurs present (Cardio), No rub (Cardio) and Peripheral pulses 2+ throughout RATE: regular rate RHYTHM: regular rhythm HEART SOUNDS: S1 normal heart sound present and S2 normal heart sound present PERIPHERAL PULSES: Peripheral pulses 2+ throughout GI: COMMON NORMALS: Normal to inspection, nondistended, normoactive bowel sounds present, Soft to palpation, non-tender, No hepatosplenomegaly present and no masses AUSCULTATION: Yes normoactive bowel sounds PALPATION: Yes Soft to palpation and Yes No hepatosplenomegaly present RECTAL EXAM: deferred Extremity: COMMON NORMALS: no clubbing, cyanosis or edema and no pedal edema Neuro: COMMON NORMALS: patient oriented x3 Data : 06/07/20 21:26 06/07/20 21:26 A&P Assessment and plan (1) Acute exacerbation of CHF (congestive heart failure): Acute CHF exacerbation Patient does not use Lasix at all at home Dietary indiscretion, she is eating frozen food and eats a lot of crackers with peanut butter Endorsing orthopnea PND shortness of breath, no active chest pain, negative delta troponin, EKG is not showing any ischemic or infarctive changes, I would start her on Bumex 1 mg monitor her urine output Counseled patient regarding low-salt intake less than 1 g a day, compliance with Lasix in order to avoid CHF exacerbation and recurrent admissions She seems to understand and is receptive of information however her hip pain and use of electric wheelchair makes it very difficult to cook which would be a hindrance for her to eat healthy cook for herself, she mostly relies on her neighbors or frozen food Status: Acute Additional A&P Information A. fib without RVR: Subtherapeutic INR, I would continue Coumadin 6 mg check INR tomorrow, History of DVTs: Patient is not sure whether she was diagnosed with hematological disorder however compliant with her Coumadin, she is currently not tachycardic or hypoxic, Obstructive sleep apnea: Auto CPAP at Hypothyroidism: Continue levothyroxine home regimen 100 mcg COPD without acute exacerbation Full code Cardiac diet DVT prophylaxis not needed currently on Coumadin Attestations Medical Necessity Statement*: Patient needs to be in hospital for the management of H.F Exacerbation. 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
--- NOTE | 2020-06-08 13:16 | PC.NURSE ---
Wants jann and naida for pain. Will inform nurse.
[2020-06-08] MEDS: warfarin 3 mg Tablet 6 MG PO (15:04)
--- NOTE | 2020-06-08 15:44 | PC.RESP ---
Pulmonary Rehab information sent to patient.
[2020-06-08] MEDS: atorvastatin 40 mg Tablet 20 MG PO (17:39)
[2020-06-08] MEDS: montelukast sodium 10 mg Tablet PO (17:39)
[2020-06-09] VITALS (9 sets, daily range): BP systolic 115–145; BP diastolic 69–83; PULSE 45–68; RESP 16–18; TEMP 36.4–37.1; O2SAT 90–97
[2020-06-09 05:16] LABS: Basophils % 0.7 %; Eosinophils % 0.5 %; Hematocrit 48.1 % (37.0-47.0); Hemoglobin 14.4 g/dL (11.5-15.3); Lymphocytes # 1.7 10^3/uL (0.8-4.8); Lymphocytes % 30.4 %; Mean Corpuscular HGB Conc 29.9 g/dL (30.0-36.0); Mean Corpuscular Hemoglobin 31.9 pg (28.0-34.0); Mean Corpuscular Volume 106.4 fL (81-99); Monocytes # 0.7 10^3/uL (0.2-0.9); Monocytes % 11.8 %; Neutrophils # 3.18 10^3/uL (1.8-7.7); Neutrophils % 56.2 %; Nucleated Red Blood Cells % 0 %; Platelet Count 195 10^3/cmm (130-400); Red Blood Count 4.52 10^6/uL (4.1-5.3); Red Cell Distribution Width 14.5 % (12.1-15.1); White Blood Count 5.7 10^3/uL (4.0-10.0)
[2020-06-09 05:30] LABS: INR 1.85 (0.8-1.2)
[2020-06-09 05:49] LABS: Anion Gap 7.2 (5-19); Blood Urea Nitrogen 19 mg/dL (8-23); Calcium 9.4 mg/dL (8.5-10.5); Chloride 97 mmol/L (98-107); Creatinine Clr Calc Pharmacy 72.9886; Glucose 89 mg/dL (65-115); Osmolality Calculated 296 mOsm/kg (285-295); Potassium 4.2 mmol/L (3.5-5.1); Sodium 142 mmol/L (136-145)
[2020-06-09 05:59] LABS: Carbon Dioxide 42 mmol/L (22-29)
[2020-06-09] MEDS: atenolol 50 mg Tablet 25 MG PO (09:32)
[2020-06-09] MEDS: NIFEdipine ER (24 hr) 30 mg Tablet 90 MG PO (09:32)
[2020-06-09] MEDS: gabapentin 300 mg Capsule PO ×3 (09:35→22:14)
[2020-06-09] MEDS: bumetanide 1 mg Tablet PO (09:35)
[2020-06-09] MEDS: levothyroxine 100 mcg Tablet PO (09:35)
--- NOTE | 2020-06-09 10:26 | PC.CHAP ---
Pastoral Care Encounter/Spiritual Assessment Type of Contact [x] Declined steel heater visit [] Patient/Family/Request visit [] Outpatient visit [] Follow-up visit [] Physician referral [] Code/Alert [] Routine visit [] Staff referral [] Actively dying [] Patient sleeping [] Family support [] [] Out of room [] Palliative care [] [] Receiving care in room [] Pre-surgical visit [] Trauma [] Long length of stay [] ICU visit [] Other: Relational/Emotional Strength [] Patient feels connected with others/family/visitors/staff [] Distress [] Loneliness/isolation [] Abandonment Spirituality of Patient [] Person of Nancy [] Attends Advent of their Nancy [] Believes in Prayer [] Reads Bible or Restoration materials [] There are Spiritual issues to be addressed Consulting Business Developer Interventions [] Prayer [] Active listening [] Non-anxious presence [] Spiritual/emotional support [] Crisis/trauma care [] Spiritual counseling [] Bereavement support [] Provided bereavement packet [] Provided Bible/devotional materials [] Provided toy/stuffed animal, coloring book to patient or family member [] Provided Communion [] Anointing/[place] [] Salvation [] Completed spiritual assessment [] Other: Impact on Illness or Injury [] Angry [] Fearful [] Anxious [] Often cries [] Exhaustion [] Unable to work [] Unable to attend sikhism [] Unable to walk/stand [] Unable to read [] Unable to drive [] Unable to eat/drink [] Unable to sleep [] Unable to be with family [] Patient intubated [] Other: Summary Declined steel heater visit Time spent with patient 5 mins
--- NOTE | 2020-06-09 13:30 | PM.PN ---
Subjective Subjective: Interval history: This is a 70-year-old female with history of atrial fibrillation, hypothyroidism, COPD who presented with weakness and shortness of breath. Patient was noted to be fluid overloaded. She was treated with IV Lasix. The patient has also been treated with atrial fibrillation. She has been noted to be subtherapeutic INR. Vitals/I&O/Wt Last Vital Signs Temp 98.0 F 06/09/20 11:36 Pulse 67 06/09/20 11:36 Resp 17 06/09/20 11:36 BP 131/83 06/09/20 11:36 Pulse Ox 90 06/09/20 11:36 06/08/20 06/09/20 06/09/20 22:59 06:59 14:59 Intake Total 720 / 720 Output Total 200 / 200 140 / 340 1400 / 1400 Balance -200 / -200 -140 / -340 -680 / -680 Weight last 48 hrs Weight 220 lb Physical Exam Const: COMMON NORMALS: no acute distress and patient oriented x3 Chest: COMMONS NORMALS: normal inspection of the chest Resp: COMMON NORMALS: normal respiratory effort and No use of accessory muscles Cardio: COMMON NORMALS: regular rate RATE: regular rate HEART SOUNDS: no murmurs GI: COMMON NORMALS: Soft to palpation and non-tender PALPATION: Yes Soft to palpation Extremity: COMMON NORMALS: normal to inspection and no joint enlargement Neuro: COMMON NORMALS: patient oriented x3 Psych: COMMON NORMALS: mental status grossly normal Data : 06/09/20 04:35 06/09/20 04:35 A&P Assessment and plan (1) Acute exacerbation of CHF (congestive heart failure): Status: Acute (2) Atrial fibrillation: Status: Acute (3) Chronic anticoagulation: Status: Inactive (4) Hypothyroid: Status: Inactive Additional A&P Information Full code is a 70-year-old female with history of atrial fibrillation, hypothyroidism, COPD who presents to the hospital with shortness of breath. 1. Acute CHF exacerbation -chart review most recent echo normal EF -Consider repeating if not done -Continue Bumex -Restrictions, monitor I's and O's -Continue atenolol -Taper O2 as possible -repeat AM cxr 2. COPD -Continue oxygen, breathing treatments, steroids received in ED -montelukast 3. AFIB -rate controlled -coumandin , atenolol 4. Hypothryoidism -on replacement Dispo: taper O2, PT Attestations Medical Necessity Statement*: Prachi Holliday Giacomo's hospital stay will require greater than 2 midnights for <del>CHF</del> Coding Level of Care Code Acute Roving Or Yarn Color Checker for Chg Fwd Exam Detailed Diagnoses Acute exacerbation of CHF (congestive heart failure) I50.9 Atrial fibrillation I48.91 Chronic anticoagulation Z79.01 Hypothyroid E03.9
[2020-06-09] MEDS: warfarin 3 mg Tablet 6 MG PO (14:41)
[2020-06-09] MEDS: montelukast sodium 10 mg Tablet PO (17:17)
[2020-06-09] MEDS: atorvastatin 40 mg Tablet 20 MG PO (17:17)
[2020-06-09] MEDS: HYDROcodone-acetaminophen 10-325 mg Tablet 1 TAB PO (18:47)
[2020-06-10] VITALS (10 sets, daily range): BP systolic 121–166; BP diastolic 70–91; PULSE 47–115; RESP 14–20; TEMP 36.3–36.8; O2SAT 92–96
--- NOTE | 2020-06-10 01:09 | ECG_ITS ---
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 Measurements Intervals [place] Rate: 70 P: [place]: QRS: 3 QRSD: 120 T: -67 QT: 416 QTc: 449 Interpretive Statements ATRIAL FIBRILLATION ANTEROSEPTAL MYOCARDIAL INFARCTION [40+ ms Q WAVE IN V1-V4], OF INDETERMINATE AGE Compared to ECG 06/08/2020 01:35:39 Aberrant conduction of supraventricular beat(s) no longer present Ventricular premature complex(es) no longer present Myocardial infarct finding still present Electronically Signed On 06-10-2020 18:28:32 PHOTOGRAMMETRIC SURVEYOR by Bebo Alberts M.D. [email or web address]
[2020-06-10 05:12] LABS: Basophils % 0.8 %; Eosinophils # 0.1 10^3/uL (0.0-0.8); Eosinophils % 2.3 %; Hematocrit 45.2 % (37.0-47.0); Hemoglobin 13.6 g/dL (11.5-15.3); Lymphocytes # 1.6 10^3/uL (0.8-4.8); Lymphocytes % 31.3 %; Mean Corpuscular HGB Conc 30.1 g/dL (30.0-36.0); Mean Corpuscular Hemoglobin 32.3 pg (28.0-34.0); Mean Corpuscular Volume 107.4 fL (81-99); Monocytes # 0.7 10^3/uL (0.2-0.9); Monocytes % 13.5 %; Neutrophils # 2.69 10^3/uL (1.8-7.7); Neutrophils % 51.9 %; Nucleated Red Blood Cells % 0 %; Platelet Count 153 10^3/cmm (130-400); Red Blood Count 4.21 10^6/uL (4.1-5.3); Red Cell Distribution Width 14.4 % (12.1-15.1); White Blood Count 5.2 10^3/uL (4.0-10.0)
--- NOTE | 2020-06-10 08:16 | XR_ITS ---
WS: [id number] Exam: XR chest 1V portable [id number] Date/Time of Exam: 06/10/2020 8:30 AM Reason For Exam: chf Comparison 06/07/2020. The heart is enlarged but unchanged in size. No consolidating infiltrate or pleural effusion. The gabriel gs are fully expanded. The mediastinum is not widened. Advanced DJD of both shoulders. XR/XR chest 1V portable [id number] IMPRESSION: 1. Cardiac enlargement unchanged. 2. No acute cardiopulmonary finding.
[2020-06-10 08:55] LABS: Thyroid Stimulating Hormone 1.12 uIU/mL (0.27-4.20)
[2020-06-10] MEDS: levothyroxine 100 mcg Tablet PO (09:37)
[2020-06-10] MEDS: gabapentin 300 mg Capsule PO ×3 (09:37→20:45)
[2020-06-10] MEDS: NIFEdipine ER (24 hr) 30 mg Tablet 90 MG PO (09:38)
[2020-06-10] MEDS: bumetanide 1 mg Tablet PO (09:39)
[2020-06-10] MEDS: HYDROcodone-acetaminophen 10-325 mg Tablet 1 TAB PO (09:40)
--- NOTE | 2020-06-10 11:13 | PM.PN ---
Subjective Subjective: Interval history: This is a 70-year-old female with history of atrial fibrillation, hypothyroidism, COPD who presented with weakness and shortness of breath. Patient was noted to be fluid overloaded. She was treated with IV Lasix. The patient has also been treated with atrial fibrillation. She has been noted to be subtherapeutic INR. Her main complaints this morning include diarrhea. She is requesting home medications to be restarted. Chest x-ray ordered. Patient noted to be bradycardic overnight Medications: Reviewed: Yes Vitals/I&O/Wt Last Vital Signs Temp 98.3 F 06/10/20 08:00 Pulse 56 L 06/10/20 08:00 Resp 18 06/10/20 08:00 BP 149/91 06/10/20 08:00 Pulse Ox 94 06/10/20 08:00 06/09/20 06/10/20 06/10/20 22:59 06:59 14:59 Intake Total 120 / 840 500 / 1340 240 / 240 Output Total 525 / 1925 120 / 2045 Balance -405 / -1085 380 / -705 240 / 240 Physical Exam Const: COMMON NORMALS: no acute distress and patient oriented x3 Chest: COMMONS NORMALS: normal inspection of the chest Resp: COMMON NORMALS: normal respiratory effort and No use of accessory muscles Cardio: COMMON NORMALS: regular rate RATE: regular rate HEART SOUNDS: no murmurs GI: COMMON NORMALS: Soft to palpation and non-tender PALPATION: Yes Soft to palpation Extremity: COMMON NORMALS: normal to inspection and no joint enlargement Neuro: COMMON NORMALS: patient oriented x3 Psych: COMMON NORMALS: mental status grossly normal Data : 06/10/20 04:00 06/09/20 04:35 CT Chest: Radiologist's impression: No PE A&P Assessment and plan (1) Acute exacerbation of CHF (congestive heart failure): Status: Acute (2) Atrial fibrillation: Status: Acute (3) Chronic anticoagulation: Status: Inactive (4) Hypothyroid: Status: Inactive Additional A&P Information Full code is a 70-year-old female with history of atrial fibrillation, hypothyroidism, COPD who presents to the hospital with shortness of breath. 1. Hypoxemia -chart review most recent echo normal EF -Repeat chest x-ray no pleural effusion seen -Continue Bumex for now -Restrictions, monitor I's and O's -Continue atenolol -Taper O2 as possible -No PE on CT scan 2. COPD -Continue oxygen, breathing treatments, steroids received in ED -montelukast 3. AFIB -rate controlled -coumandin , -Digoxin and atenolol on hold due to bradycardia 4. Hypothryoidism -on replacement Dispo: taper O2, PT Attestations Medical Necessity Statement*: Prachi Gooden's hospital stay will require greater than 2 midnights for hypoxemia Coding Level of Care Code Acute Medicaid Collection Specialist for Chg Fwd Diagnoses Acute exacerbation of CHF (congestive heart failure) I50.9 Atrial fibrillation I48.91 Chronic anticoagulation Z79.01 Hypothyroid E03.9
[2020-06-10] MEDS: diazePAM 5 mg Tablet 10 MG PO (12:52)
[2020-06-10] MEDS: warfarin 3 mg Tablet 6 MG PO (14:34)
[2020-06-10] MEDS: montelukast sodium 10 mg Tablet PO (17:35)
[2020-06-10] MEDS: atorvastatin 40 mg Tablet 20 MG PO (17:35)
[2020-06-10] MEDS: loperamide 2 mg Capsule 4 MG PO (18:19)
[2020-06-11] VITALS (9 sets, daily range): BP systolic 144–166; BP diastolic 80–95; PULSE 53–97; RESP 17–20; TEMP 36.4–36.8; O2SAT 90–94
[2020-06-11] MEDS: NIFEdipine ER (24 hr) 30 mg Tablet 90 MG PO (04:26)
--- NOTE | 2020-06-11 04:29 | PC.NURSE ---
Patients blood pressure is 166/95 Dr. Mark mcghee Morning dose of Procardia to take now.
[2020-06-11 06:12] LABS: Alanine Aminotransferase 8 U/L (0-33); Albumin Level 4.2 g/dL (3.5-5.2); Alkaline Phosphatase 58 IU/L (35-105); Aspartate Amino Transferase 21 U/L (0-32); Basophils # 0.1 10^3/uL (0.0-0.1); Basophils % 1.2 %; Blood Urea Nitrogen 12 mg/dL (8-23); Calcium 9.4 mg/dL (8.5-10.5); Carbon Dioxide 40 mmol/L (22-29); Chloride 94 mmol/L (98-107); Creatinine Clr Calc Pharmacy 72.9886; Eosinophils # 0.1 10^3/uL (0.0-0.8); Eosinophils % 2.1 %; Glucose 85 mg/dL (65-115); Hemoglobin 14.7 g/dL (11.5-15.3); Lymphocytes # 1.3 10^3/uL (0.8-4.8); Lymphocytes % 30.3 %; Mean Corpuscular HGB Conc 30.6 g/dL (30.0-36.0); Mean Corpuscular Hemoglobin 31.8 pg (28.0-34.0); Mean Corpuscular Volume 103.9 fL (81-99); Monocytes # 0.6 10^3/uL (0.2-0.9); Monocytes % 14.4 %; Neutrophils # 2.24 10^3/uL (1.8-7.7); Neutrophils % 51.8 %; Nucleated Red Blood Cells % 0 %; Osmolality Calculated 293 mOsm/kg (285-295); Platelet Count 157 10^3/cmm (130-400); Red Blood Count 4.62 10^6/uL (4.1-5.3); Red Cell Distribution Width 13.8 % (12.1-15.1); Sodium 142 mmol/L (136-145); Total Bilirubin 0.7 mg/dL (0.15-1.2); Total Protein 7.2 g/dL (6.6-8.7); White Blood Count 4.3 10^3/uL (4.0-10.0)
[2020-06-11] MEDS: bumetanide 1 mg Tablet PO (09:37)
[2020-06-11] MEDS: gabapentin 300 mg Capsule PO ×3 (09:37→20:20)
[2020-06-11] MEDS: levothyroxine 100 mcg Tablet PO (09:37)
[2020-06-11] MEDS: cetirizine 10 mg Tablet PO (13:43)
--- NOTE | 2020-06-11 14:14 | P.PN_ITS ---
Subjective Subjective: Interval history: No acute event Overnight.Patient SOB has improved.She was complaining of sinus pain. Has Good Urine output : 3Ls Net Negative : - 3.2 L since admission. Vitals and labs have been reviewed. Medications: Reviewed: Yes Vitals/I&O/Wt Last Vital Signs Temp 98.2 F 06/11/20 11:56 Pulse 88 06/11/20 11:56 Resp 18 06/11/20 11:56 BP 148/91 06/11/20 11:56 Pulse Ox 93 06/11/20 11:56 06/10/20 06/11/20 06/11/20 22:59 06:59 14:59 Intake Total 240 / 600 200 / 200 Output Total 900 / 900 1500 / 1500 Balance 240 / 600 -900 / -300 -1300 / -1300 Physical Exam Const: COMMON NORMALS: patient oriented x3 HENMT: COMMON NORMALS: normocephalic and atraumatic HEAD & SCALP: normocep halic and atraumatic Chest: CHEST: Yes Symmetrical chest wall rise Resp: COMMON NORMALS: clear to auscultation bilaterally EFFORT & INSPECTION: Yes symmetric chest movement AUSCULTATION: clear to auscultation bilaterally OTHER: Minimal expiratory wheezing Present.No crackles and no ronchii. Cardio: COMMON NORMALS: regular rate, regular rhythm, S1 normal heart sound present, S2 normal heart sound present, No gallops present (Cardio), No murmurs present (Cardio), No rub (Cardio) and Peripheral pulses 2+ throughout RATE: regular rate RHYTHM: regular rhythm HEART SOUNDS: S1 normal heart sound present and S2 normal heart sound present PERIPHERAL PULSES: Peripheral pulses 2+ throughout GI: COMMON NORMALS: Normal to inspection, nondistended, normoactive bowel sounds present, Soft to palpation, non-tender, No hepatosplenomegaly present and no masses AUSCULTATION: Yes normoactive bowel sounds PALPATION: Yes Soft to palpation and Yes No hepatosplenomegaly present RECTAL EXAM: deferred Extremity: COMMON NORMALS: no clubbing, cyanosis or edema and no pedal edema Neuro: COMMON NORMALS: patient oriented x3 Data : 06/11/20 04:41 06/11/20 04:41 A&P Assessment and plan (1) Acute exacerbation of CHF (congestive heart failure): Acute CHF exacerbation Patient does not use Lasix at all at home Dietary indiscretion, she is eating frozen food and eats a lot of crackers with peanut butter Endorsing orthopnea PND shortness of breath, no active chest pain, negative delta troponin, EKG is not showing any ischemic or infarctive changes, on Bumex 1 mg PO monitor her urine output Counseled patient regarding low-salt intake less than 1 g a day, compliance with Lasix in order to avoid CHF exacerbation and recurrent admissions She seems to understand and is receptive of information however her hip pain and use of electric wheelchair makes it very difficult to cook which would be a hindrance for her to eat healthy cook for herself, she mostly relies on her neighbors or frozen food Status: Acute (2) Atrial fibrillation: Status: Acute (3) Chronic anticoagulation: Status: Inactive (4) Hypothyroid: Status: Inactive Additional A&P Information Full code is a 70-year-old female with history of atrial fibrillation, hypothyroidism, COPD who presents to the hospital with shortness of breath. 1. Hypoxemia -chart review most recent echo normal EF -Repeat chest x-ray no pleural effusion seen -Continue Bumex for now -Restrictions, monitor I's and O's -Continue atenolol -Taper O2 as possible -No PE on CT scan 2. COPD -Continue oxygen, breathing treatments, steroids received in ED -montelukast 3. AFIB -rate controlled -coumandin , -Digoxin and atenolol on hold due to bradycardia 4. Hypothryoidism -on replacement Dispo: taper O2, PT Attestations Medical Necessity Statement*: Patient needs to be in hospital for the management of HF Exacerbation. Coding Level of Care Code Acute Browning Processor for Sarah Bates Diagnoses Acute exacerbation of CHF (congestive heart failure) I50.9 Atrial fibrillation I48.91 Chronic anticoagulation Z79.01 Hypothyroid E03.9
[2020-06-11 14:51] LABS: INR 1.43 (0.8-1.2)
[2020-06-11] MEDS: warfarin 3 mg Tablet 6 MG PO (15:04)
[2020-06-11] MEDS: warfarin 10 mg Tablet PO (15:05)
[2020-06-11] MEDS: loperamide 2 mg Capsule 4 MG PO (15:05)
[2020-06-11] MEDS: HYDROcodone-acetaminophen 10-325 mg Tablet 1 TAB PO (15:15)
--- NOTE | 2020-06-11 17:22 | PC.PT ---
pt refused therapy, stated she is walking to bathroom, at home only stand pivots to electric scooter. suggestions made for reduced back pain with activities though pt thanked me though declined. D/C PT.
[2020-06-11] MEDS: atorvastatin 40 mg Tablet 20 MG PO (17:35)
[2020-06-11] MEDS: montelukast sodium 10 mg Tablet PO (17:37)
[2020-06-12] VITALS (8 sets, daily range): BP systolic 138–174; BP diastolic 72–93; PULSE 56–93; RESP 18–20; TEMP 36.6–36.8; O2SAT 90–93
[2020-06-12 05:23] LABS: Basophils # 0.1 10^3/uL (0.0-0.1); Basophils % 1.1 %; Eosinophils # 0.1 10^3/uL (0.0-0.8); Hematocrit 47.4 % (37.0-47.0); Lymphocytes # 1.5 10^3/uL (0.8-4.8); Lymphocytes % 33.1 %; Mean Corpuscular HGB Conc 31.6 g/dL (30.0-36.0); Mean Corpuscular Volume 101.1 fL (81-99); Mean Platelet Volume 11.1 fL (7.4-10.4); Monocytes # 0.6 10^3/uL (0.2-0.9); Monocytes % 12.5 %; Neutrophils # 2.26 10^3/uL (1.8-7.7); Neutrophils % 51.3 %; Nucleated Red Blood Cells % 0 %; Platelet Count 159 10^3/cmm (130-400); Red Blood Count 4.69 10^6/uL (4.1-5.3); Red Cell Distribution Width 13.4 % (12.1-15.1); White Blood Count 4.4 10^3/uL (4.0-10.0)
[2020-06-12 05:48] LABS: Alanine Aminotransferase 8 U/L (0-33); Alkaline Phosphatase 55 IU/L (35-105); Anion Gap 12.7 (5-19); Aspartate Amino Transferase 20 U/L (0-32); Blood Urea Nitrogen 11 mg/dL (8-23); Calcium 9.5 mg/dL (8.5-10.5); Carbon Dioxide 34 mmol/L (22-29); Chloride 99 mmol/L (98-107); Creatinine Clr Calc Pharmacy 72.9886; Glucose 95 mg/dL (65-115); Magnesium 1.8 mg/dL (1.7-2.3); Osmolality Calculated 293 mOsm/kg (285-295); Potassium 3.7 mmol/L (3.5-5.1); Sodium 142 mmol/L (136-145); Total Bilirubin 0.8 mg/dL (0.15-1.2)
--- NOTE | 2020-06-12 09:03 | PM.DCS ---
Discharge Providers Date of Admission: 06/09/20 16:05 Date of Discharge: June 12, 2020 Attending Provider at Admission: Michael Flores MD Attending Provider at Discharge: Simba Stenr MD Primary Care Provider: Carmina Soto MD Diagnoses at Discharge Discharge Diagnosis (1) Acute exacerbation of CHF (congestive heart failure): Status: Chronic (2) Atrial fibrillation: Status: Chronic (3) Chronic anticoagulation: Status: Inactive Permanent problem details: For A. fib and DVT (4) Hypothyroid: Status: Chronic Reason for Visit Reason for Visit: WEAKNESS, SOB Hospital Course Hospital Course 70 year old female with PMH of HFpEF EF 56%, chronic A. fib, hypothyroidism, sleep apnea, HTN, presented with chief complaint of, PND and shortness of breath, because of having missed taking Lasix, as she was having difficulty going to the bathroom, because he uses electric wheelchair home.Her dietary habits was also erratic as she is not able to cook for herself and for most time she has to eat unhealthy food. During this admission she was admitted for the management of decompensated HFpEF. She was kept on Bumex 1 mg p.o. daily to which she responded well, with good urine output, with improvement in PND,SOB. Her INR was also subtherapeutic,she received additional doses of warfarin,she will continue to follow-up with her warfarin clinic, for the management of anticoagulation. A. fib was rate rate controlled. On admission he was also hypoxemic CTA chest was done, there was no PE. Hypoxemic respiratory failure was likely from heart failure exacerbation.At the time of discharge she was saturating well on room air. For hypothyroidism She continued to be on levothyroxine 100 MCG PO daily. She will continue to follow-up with her furnace repair mechanic as an outpatient.She was discharged in stable condition. Physical Exam Const: COMMON NORMALS: patient oriented x3 HENMT: COMMON NORMALS: normocephalic and atraumatic HEAD & SCALP: normocephalic and atraumatic Chest: CHEST: Yes Symmetrical chest wall rise Resp: COMMON NORMALS: normal respiratory effort and clear to auscultation bilaterally EFFORT & INSPECTION: Yes symmetric chest movement AUSCULTATION: clear to auscultation bilaterally Cardio: COMMON NORMALS: regular rate, regular rhythm, S1 normal heart sound present, S2 normal heart sound present, No gallops present (Cardio), No murmurs present (Cardio), No rub (Cardio) and Peripheral pulses 2+ throughout RATE: regular rate RHYTHM: regular rhythm HEART SOUNDS: S1 normal heart sound present and S2 normal heart sound present PERIPHERAL PULSES: Peripheral pulses 2+ throughout GI: COMMON NORMALS: Normal to inspection, nondistended, normoactive bowel sounds present, Soft to palpation, non-tender, No hepatosplenomegaly present and no masses AUSCULTATION: Yes normoactive bowel sounds PALPATION: Yes Soft to palpation and Yes No hepatosplenomegaly present RECTAL EXAM: deferred Extremity: COMMON NORMALS: no clubbing, cyanosis or edema and no pedal edema Neuro: COMMON NORMALS: patient oriented x3 Discharge Data Data Completed and Pending: Completed Studies During Hospitalization Category Date Time Status CT angio chest PE protcl [id number] Rout ine Cat Scan 06/08/20 06:57 Completed XR chest 1V justin ble [id number] Routine Exams 06/10/20 08:16 Completed XR chest 1V justin ble [id number] Urgent Exams 06/07/20 18:48 Completed Pending at discharge Category Date Time Status CBC Auto Diff [Co mplete Blood Count w/Auto] AM LABS Lab 06/13/20 04:00 Ordered CBC Auto Diff [Co mplete Blood Count w/Auto] AM LABS Lab 06/14/20 04:00 Ordered CMP [Comprehensiv e Metabolic Panel] AM LABS Lab 06/13/20 04:00 Ordered CMP [Comprehensiv e Metabolic Panel] AM LABS Lab 06/14/20 04:00 Ordered Magnesium AM LABS Lab 06/13/20 04:00 Ordered Magnesium AM LABS Lab 06/14/20 04:00 Ordered Labs from last 24 hours 06/12/20 06/12/20 06/11/20 04:48 04:48 14:23 WBC 4.4 RBC 4.69 Hgb 15.0 Hct 47.4 H MCV 101.1 H MCH 32.0 MCHC 31.6 RDW 13.4 Plt Count 159 MPV 11.1 H Neut % (Auto) 51.3 Lymph % (Auto) 33.1 Giles % (Auto) 12.5 Eos % (Auto) 2.0 Baso % (Auto) 1.1 Neut # (Auto) 2.26 Lymph # (Auto) 1.5 Giles # (Auto) 0.6 Eos # (Auto) 0.1 Baso # (Auto) 0.1 Nucleated RBC % (a uto) 0 Nucleated RBCs # 0.0 PT 17.90 H INR 1.43 H Sodium 142 Potassium 3.7 Chloride 99 Carbon Dioxide 34 H Anion Gap 12.7 BUN 11 Creatinine 0.6 GFR Calculation Not Reportable Glucose 95 Calculated Osmolal ity 293 Calcium 9.5 Magnesium 1.8 Total Bilirubin 0.8 AST 20 ALT 8 Alkaline Phosphata se 55 Total Protein 7.0 Albumin 4.0 Globulin 3.0 Vitals: Last Vital Signs Temp 98.1 F 06/12/20 08:00 Pulse 93 06/12/20 08:43 Resp 18 06/12/20 08:43 BP 138/72 06/12/20 08:00 Pulse Ox 91 06/12/20 08:43 Discharge Plan Discharge Patient Disposition: Home Condition: Stable Prescriptions: New Lasix 40 mg tablet 40 mg PO BID Qty: 60 RF: 0 Continued montelukast 10 mg tablet 10 mg PO DAILY@05 RF: 0 levothyroxine [Synthroid] 100 mcg tablet 100 mcg PO DAILY@05 RF: 0 atenolol 25 mg tablet 25 mg PO DAILY@05 RF: 0 fentanyl 75 mcg/hr patch 72 hour 1 patch TRANSDERMA Q72H RF: 0 gabapentin 300 mg capsule 300 mg PO TID@05,12,17 RF: 0 diazepam [Valium] 10 mg tablet 10 mg PO TID PRN (Reason: Anxiety) RF: 0 nitroglycerin [Nitrostat] 0.4 mg tablet, sublingual 0.4 mg SUBLINGUAL Q5M PRN (Reason: Chest Pain) RF: 0 albuterol sulfate [Proventil HFA] 90 mcg/actuation HFA aerosol inhaler 1 inh INHALATION QID PRN (Reason: Shortness Of Breath) RF: 0 albuterol sulfate 0.63 mg/3 mL solution for nebulization 0.63 mg INHALATION Q6H PRN (Reason: Shortness Of Breath) RF: 0 potassium chloride 20 mEq tablet extended release 20 meq PO DAILY RF: 0 warfarin [Coumadin] 6 mg tablet 6 mg PO DAILY Qty: 90 RF: 3 warfarin [Coumadin] 1 mg tablet 1 mg PO DAILY Qty: 30 RF: 11 warfarin 5 mg tablet 5 mg PO DAILY Qty: 30 RF: 5 digoxin 250 mcg (0.25 mg) tablet 250 mcg PO DAILY Qty: 90 RF: 3 nifedipine 90 mg tablet extended release 90 mg PO DAILY Qty: 30 RF: 5 simvastatin 40 mg tablet See Rx Instructions .ROUTE .COMPLEX Qty: 90 RF: 3 colesevelam [WelChol] 625 mg Tablet 625 mg PO BID@ RF: 0 hydrocodone-acetaminophen 10-325 mg tablet 1 tab PO Q6H PRN (Reason: Pain) RF: 0 meclizine 25 mg tablet 25 mg PO TID PRN (Reason: Dizziness) RF: 0 diclofenac sodium 75 mg tablet,delayed release (DR/EC) 75 mg PO BID@ RF: 0 ipratropium bromide 0.02 % solution 2.5 ml inhalation Q4H PRN (Reason: Shortness Of Breath) RF: 0 Held acyclovir 400 mg tablet 400 mg PO BID PRN (Reason: Cold Sores) RF: 0 Hold Instructions: Resume on 06/22/20. Discontinued furosemide 40 mg tablet 40 mg PO DAILY PRN (Reason: Edema) RF: 0 Discharge Orders: Discharge Order (Routine); Ordered 06/12/20 Ordered By: Simba Stern Referrals: [facility] [Other] Carmina Soto MD [Primary Care Provider] - 1 week (Please call Saturday to set up a follow up appointment.) Arlene Aguayo MD [Physician] - 1 week (Please call Saturday to set up a follow up appointment.) Discharge Diet: Cardiac and Low Salt Discharge Activity: Resume usual activity Patient Instructions: Atrial Fibrillation, Furosemide (By mouth), Heart Failure (DC), CHF Stoplight Discharge Attestations Time Spent in Discharge Care*: greater than 30 min Specific Discharge Activities: educating patient, discussing with pcp/other providers, discussing with correctional case manager/social workers/dc planners, documenting/other paperwork and evaluating patient/reviewing data Status at Discharge: Cognitive status at discharge: cognitively intact, Behavioral status at discharge: cooperative, Functional status at discharge: independent ambulation Overall status at discharge: patient is back to baseline Quality Metrics Clinical Quality Measures During this hospital stay, did patient experience: None Coding Level of Care Code Acute Assembler Crimper for [facility] Fwd Diagnoses Acute exacerbation of CHF (congestive heart failure) I50.9 Atrial fibrillation I48.91 Chronic anticoagulation Z79.01 Hypothyroid E03.9
[2020-06-12] MEDS: levothyroxine 100 mcg Tablet PO (09:23)
[2020-06-12] MEDS: cetirizine 10 mg Tablet PO (09:23)
[2020-06-12] MEDS: NIFEdipine ER (24 hr) 30 mg Tablet 90 MG PO (09:23)
[2020-06-12] MEDS: gabapentin 300 mg Capsule PO (09:23)
--- NOTE | 2020-06-12 11:35 | PC.SOCIAL ---
Pg 2 IMM Explained to pt Pg 2 IMM. No questions voiced. Provided pt a copy. Signed, dated, & timed a copy & placed in chart.
--- NOTE | 2020-06-13 12:56 | PC.RESP ---
Pulmonary Rehab information sent to patient.
== END 2020-06-12 12:15 | disposition home or self-care (01) | DRG 291 ==
LOC: ER 06-08 00:09 → ER IP 06-08 08:11 → MEDSURG 06-08 17:09
PROVIDERS: Emergency Medicine; Internal Medicine; Admitting Provider Internal Medicine; Emergency Provider Family Medicine; PCP Internal Medicine; Visit Provider Internal Medicine
DX: I50.33 Acute on chronic diastolic (congestive) heart failure (principal); J96.91 Respiratory failure, unspecified with hypoxia; I48.20 Chronic atrial fibrillation, unspecified; E66.01 Morbid (severe) obesity due to excess calories; Z68.37 Body mass index [BMI] 37.0-37.9, adult; Z79.01 Long term (current) use of anticoagulants; Z86.718 Personal history of other venous thrombosis and embolism; J44.9 Chronic obstructive pulmonary disease, unspecified; E03.9 Hypothyroidism, unspecified; G47.33 Obstructive sleep apnea (adult) (pediatric); Z96.643 Presence of artificial hip joint, bilateral; R79.1 Abnormal coagulation profile; Z79.51 Long term (current) use of inhaled steroids; Z79.891 Long term (current) use of opiate analgesic
CPT/HCPCS: 12345; 36415; 71045; 71275; 80048; 80053; 83735; 83880; 84443; 84484; 85025; 85378; 85610; 93005; 99284; G0378; J1200; J2930; Q9967

== ENCOUNTER → 2020-12-09 11:55 | Outpatient (BNVA) | payer MEDICARE, BC, SELFPAY | PROVIDERS: PCP Internal Medicine; Visit Provider Internal Medicine Cardiovascular Disease | DX: I50.9 Heart failure, unspecified (principal); Z79.01 Long term (current) use of anticoagulants; I48.91 Unspecified atrial fibrillation; J44.9 Chronic obstructive pulmonary disease, unspecified; G47.30 Sleep apnea, unspecified | CPT/HCPCS: 80053; 83880; 85025 ==